=== PATIENT | male | born 1960 | race Caucasian/White ===

== ENCOUNTER 2024-05-31 12:01 | Outpatient (REF) | payer MEDICARE, SELFPAY | END 2024-05-31 12:02 | disposition home or self-care (01) | LOC: HO.HOSX 12:01 | PROVIDERS: Visit Provider Orthopaedic Surgery | DX: Z13.89 Encounter for screening for other disorder (principal) ==

== ENCOUNTER 2024-06-01 08:25 | Outpatient (REF) | payer MEDICARE, SELFPAY ==
--- NOTE | ~2024-06-01 | XR_ITS ---
EXAMINATION: XR SHOULDER 2 OR MORE VIEWS LEFT HISTORY: M25.511 - Pain in right shoulder COMPARISON: There are no prior studies available for comparison. FINDINGS: Two views of the left shoulder are submitted. Osseous mineralization is normal. There is no fracture or dislocation. The glenohumeral and acromioclavicular joint spaces are preserved. The soft tissues are unremarkable. XR/XR shoulder LT min 2V IMPRESSION: Unremarkable examination of the left shoulder. Electronically signed by: Jhoan Avalos MD 06/02/2024 08:06 AM EDT
== END 2024-06-01 08:26 | disposition home or self-care (01) ==
LOC: HO.HOSX 08:25
PROVIDERS: Visit Provider Orthopaedic Surgery
DX: M25.511 Pain in right shoulder (principal)
CPT/HCPCS: 73030

== ENCOUNTER 2024-06-01 09:31 | Outpatient (AMB) | payer BC, SELFPAY ==
--- NOTE | 2024-06-01 09:52 | MHC.OFFVIS ---
Vital Signs 06/01/24 10:03 Height 5 ft 7 in Weight 173 lb BMI 27.1 Intake Visit Reasons: Left shoulder pain and weakness Intake Note: Faheem is a 64 year old right hand dominant male who presents with complaints of progressively worsening left shoulder pain and weakness. The patient did undergo right shoulder surgery in 2019. He denies any pain or weakness in his right shoulder. Describes his left shoulder pain as sharp in nature. The patient's symptoms have gotten worse over the last 6 months. He has failed the last 3 months of conservative treatment which have included physical therapy exercises, Tylenol and ibuprofen. He reports weakness when lifting his left hand above shoulder height. He has had cortisone injections in the past which gave him only temporary relief. today as a new patient for evaluation of left shoulder pain that began about 3 months ago . Patient reports the pain is located on the - aspect of the shoulder, radiating to the left elbow. Patient shares pain worsens when-? Reports numbness and tingling radiating down the arm. Has tried Ibuprofen and Tylenol arthritis. Reports the left shoulder arthroscopy, [address] Camara. Allergies No Known Allergies Allergy (Verified 06/01/24 10:03) Medication List - Last Reconciled 06/01/24 by Suresh Camara MD atorvastatin 20 mg PO DAILY empagliflozin (Jardiance) 25 mg PO DAILY fenofibrate 54 mg PO DAILY lisinopril 20 mg PO DAILY metoprolol succinate ER 50 mg PO DAILY tirzepatide (Mounjaro) mg subcut Physical Exam Vital Signs: BMI result Body Mass Index 27.1 Const Other: Well-nourished well-developed very friendly male awake alert and oriented x3 in no acute distress Extrem Other: Bilateral upper extremity examination shows good capillary refill, no skin lesions noted, normal sensation light touch Left shoulder examination shows decreased range of motion when compared to his right shoulder, 4+ out of 5 strength with supraspinatus testing, positive impingement signs, tenderness over his acromioclavicular joint, no instability Results Reviewed Results Reviewed: X-rays of the patient's left shoulder taken today show severe acromioclavicular joint narrowing, a type 2 acromion, no acute bony abnormalities Assessment & Plan Assessment & Plan (1) Rotator cuff insufficiency of left shoulder: Code(s): M25.312 - Other instability, left shoulder Category: Medical Plan Mr. Pryor presents with progressively worsening left shoulder pain weakness due to impingement syndrome and possible rotator cuff tearing. Thus, I will send him for an MRI of his left shoulder for further evaluation. I will see him back once the MRI is completed to discuss the findings and treatment options. I did give him prescriptions for a Medrol Dosepak and meloxicam to help with his pain meantime. Feel free to call me at any time should questions regarding his orthopedic management arise. I spent 20 minutes in reviewing the patient's records and imaging studies, seeing the patient and documenting in the medical record. Orders: Orders XR shoulder LT min 2V Today M25.511 - Pain in right shoulder MR shoulder LT wo con Today M25.312 - Other instability, left shoulder Medications: New meloxicam 15 mg PO DAILY PRN 30 tabs 3RF pain methylprednisolone (Medrol (Gaetano)) PO PER PKG DIR 21 ea 0RF Coding Level of Care Code New Pt Level 3 (44222) Complex EM visit Add On G2211 Diagnoses Rotator cuff insufficiency of left shoulder M25.312
[2024-06-01 10:03] VITALS: BMI 27.1
== END 2024-06-01 10:33 | disposition home or self-care (01) ==
LOC: HO.HOS 09:32
PROVIDERS: Visit Provider Orthopaedic Surgery
DX: M25.312 Other instability, left shoulder (principal)
CPT/HCPCS: 99203

== ENCOUNTER → 2024-06-01 09:57 | Outpatient (BNV) | payer BC, SELFPAY | PROVIDERS: Visit Provider Radiology Diagnostic Radiology | DX: M25.512 Pain in left shoulder (principal) | CPT/HCPCS: 73030 ==

== ENCOUNTER → 2024-06-14 07:13 | Outpatient (BNV) | payer BC, SELFPAY | PROVIDERS: PCP Internal Medicine; Visit Provider Radiology Diagnostic Radiology | DX: M75.122 Complete rotator cuff tear or rupture of left shoulder, not specified as traumatic (principal); M19.012 Primary osteoarthritis, left shoulder | CPT/HCPCS: 73221 ==

== ENCOUNTER 2024-06-14 07:14 | Outpatient (REF) | payer BC, SELFPAY ==
--- NOTE | ~2024-06-14 | MR_ITS ---
EXAMINATION: MR SHOULDER, LEFT CLINICAL INFORMATION: Left shoulder pain, radiating down left arm, decreased range of motion x3-4 months. Other instability left shoulder. COMPARISON: None Correlation made with radiographs left shoulder 06/01/2024. TECHNIQUE: Multiplanar multisequence MR imaging of the left shoulder was done without IV contrast. Examination performed on a 1.5 Estrella Siemens unit utilizing standard sequences. FINDINGS: Rotator Cuff and Biceps Tendon: Supraspinatus: There is an approximate 50% undersurface tear of the anterior tendon within the critical zone, spanning 9 mm in sagittal diameter by 5 mm in AP diameter (series 8, image 12). There is mild increased intrasubstance signal within the tendon consistent with tendinopathy. There is no full-thickness tear or tendinous retraction. The muscle belly is normal. Infraspinatus: Intact without definite evidence of tear. Normal muscle belly. Subscapularis: There is an interstitial myotendinous tear of the bursal surface spanning approximately 16 mm sagittal diameter (series 8, image 24). There is a partial insertional tear of the tendon at the inferior insertional aspect measuring approximately 2 x 6 mm. (Series 8, image 8). Mildly increased intrasubstance signal within the distal tendon is consistent with mild tendinopathy. No full-thickness tear or tendinous retraction. The transverse humeral ligament is intact. Normal muscle belly. Teres Minor: Appears intact and normal in signal. Normal muscle belly. Biceps Long Head: Normally located within the groove. There is mildly increased fluid surrounding the tendon consistent with mild tenosynovitis. The tendon has normal morphology. The tendon in the rotator interval demonstrates grossly normal signal. The bicipital anchor is intact. AC Joint and Acromiohumeral Arch: There is moderate predominantly superior surface spurring of the AC joint with mild periarticular edema and joint capsular distention. There is minimal undersurface spurring. There is no supraspinatus outlet impingement. There is a type II acromion without significant undersurface spurs. Glenohumeral Joint and Labrum: There is minimally increased joint fluid present. There are no significant cartilaginous defects. There is no subchondral bone plate edema. The labrum demonstrates irregular signal throughout the superior labrum suggestive of tearing. This extends mildly into the anterior labrum, which appears diminutive. Remainder of the labrum appears intact. Osseous Structures: No additional gross bone marrow edema or abnormal infiltrating bone marrow signal. No definite fracture or contusive injury. Spino-glenoid Notch: Normal. Quadrilateral Space: Normal. Other: There is fluid signal within the subacromial/subdeltoid bursa suggestive of mild bursitis. MR/MR shoulder LT wo con IMPRESSION: 1. There is an approximate 50% undersurface tear of the anterior supraspinatus tendon within the critical zone. There is no full-thickness tear or tendinous retraction. There is mild associated tendinopathy. 2. There is an interstitial myotendinous tear of the bursal surface of the subscapularis tendon. In addition there is a partial insertional tear of the inferior insertional aspect of the tendon. There is mild associated tendinopathy. 3. The infraspinatus tendon and teres minor tendon are intact. 4. There are findings highly suggestive of degenerative type tearing of the anterosuperior labrum. 5. Mild to moderate arthritis in the AC joint with minimal undersurface spurring. No supraspinatus outlet stenosis. 6. Mild subacromial/subdeltoid bursitis. Electronically signed by: José Frank MD 06/14/2024 03:41 PM EDT
== END 2024-06-14 07:15 | disposition home or self-care (01) ==
LOC: HO.MRI 07:14
PROVIDERS: PCP Internal Medicine; Visit Provider Orthopaedic Surgery
DX: M25.312 Other instability, left shoulder (principal); M75.102 Unspecified rotator cuff tear or rupture of left shoulder, not specified as traumatic; M19.012 Primary osteoarthritis, left shoulder; M75.52 Bursitis of left shoulder
CPT/HCPCS: 73221

== ENCOUNTER 2024-06-21 10:35 | Outpatient (AMB) | payer BC, SELFPAY ==
--- NOTE | 2024-06-21 10:36 | MHC.OFFVIS ---
Vital Signs 06/21/24 10:39 Height 5 ft 7 in Weight 173 lb BMI 27.1 Intake Visit Reasons: Left shoulder pain Intake Note: Faheem is a 64 year old male who presents with progressively worsening left shoulder pain. He describes his pain as sharp in nature. He reports mild weakness in his left shoulder when lifting his hand above shoulder height. He has tried Tylenol and anti-inflammatory medicines which gave him mild relief. Allergies No Known Allergies Allergy (Verified 06/21/24 10:37) Medication List - Last Reconciled 06/22/24 by Suresh Camara MD atorvastatin 20 mg PO DAILY empagliflozin (Jardiance) 25 mg PO DAILY fenofibrate 54 mg PO DAILY lisinopril 20 mg PO DAILY meloxicam 15 mg PO DAILY PRN methylprednisolone (Medrol (Gaetano)) PO PER PKG DIR metoprolol succinate ER 50 mg PO DAILY tirzepatide (Mounjaro) mg subcut Physical Exam Vital Signs: BMI result Body Mass Index 27.1 Const Other: Well-nourished well-developed very friendly male awake alert and oriented x3 in no acute distress Extrem Other: Bilateral upper extremity examination shows good capillary refill, no skin lesions noted, normal sensation light touch Left shoulder examination shows almost full range of motion when compared to his right shoulder, positive impingement signs, 4+ out of 5 strength with supraspinatus testing, tenderness over his acromioclavicular joint, no instability Office Procedures AMB Joint Injection/Aspiration Joint Injection/Aspiration Primary Site: left shoulder Prep: site was prepped using aseptic technique Injected: 40 mg of, DepoMedrol and 1% plain lidocaine Procedure: The patient tolerated the procedure well Coding 91943 - Large joint Procedure code (CPT) selection complete Results Reviewed Results Reviewed: MRI of the patient's left shoulder show severe acromioclavicular joint narrowing, a type 2 acromion, signal change within the supraspinatus tendon due to rotator cuff tendinosis versus a small tear Assessment & Plan Assessment & Plan (1) Impingement syndrome of left shoulder: Code(s): M75.42 - Impingement syndrome of left shoulder Category: Medical (2) Left shoulder pain: Code(s): M25.512 - Pain in left shoulder Plan Mr. Pryor presents with left shoulder pain due to impingement syndrome, acromioclavicular joint arthritis and rotator cuff tendinosis versus a small tear. I had a lengthy discussion with the patient regarding the treatment options. The risks and benefits of a left shoulder cortisone injection were discussed at length with the patient. The patient wished to proceed. He tolerated the injection well. He will continue with his home exercise program. If he fails continued non operative treatments he is considering undergoing left shoulder surgery later this year. He will contact me prior to his follow-up appointment in 3 months should any questions or concerns arise. Feel free to call me at any time should questions regarding his orthopedic management arise. I spent 21 minutes in reviewing the patient's records and imaging studies, seeing the patient and documenting in the medical record. Orders: Orders AMB Joint Injection/Aspiration 06/21/24 M25.312 - Other instability, left shoulder, M75.42 - Impingement syndrome of left shoulder Coding Level of Care Code Est Pt Level 3 (77971) Complex EM visit Add On G2211 Diagnoses Impingement syndrome of left shoulder M75.42 Left shoulder pain M25.512 CPT Codes Coding - 12909 Large joint: 57701 - Large joint ([id number])
[2024-06-21 10:39] VITALS: BMI 27.1
== END 2024-06-21 11:04 | disposition home or self-care (01) ==
LOC: HO.HOS 10:35
PROVIDERS: PCP Internal Medicine; Visit Provider Orthopaedic Surgery
DX: M75.42 Impingement syndrome of left shoulder (principal); M25.512 Pain in left shoulder
CPT/HCPCS: 20610; 99213

== ENCOUNTER → 2024-06-21 10:35 | Outpatient (BNVA) | payer BC, SELFPAY | PROVIDERS: PCP Internal Medicine; Visit Provider Orthopaedic Surgery | DX: M75.42 Impingement syndrome of left shoulder (principal); M25.512 Pain in left shoulder | CPT/HCPCS: 20610; J1010; J2003 ==

== ENCOUNTER 2024-09-26 10:21 | Outpatient (AMB) | payer BC, SELFPAY ==
[2024-09-26 10:23] VITALS: BMI 27.1
--- NOTE | 2024-09-26 10:23 | MHC.OFFVIS ---
Vital Signs 09/26/24 10:23 Height 5 ft 7 in Weight 173 lb BMI 27.1 Intake Visit Reasons: Left shoulder pain Intake Note: Faheem is a 64 year old male who presents with left shoulder pain. He describes his pain as achy in nature. He denies any weakness in his shoulder. He has had cortisone injections in the past which gave him fairly good relief. He wishes to hold off on surgery for as long as possible. He has taken meloxicam which gives him fairly good relief. Allergies No Known Allergies Allergy (Verified 09/26/24 10:23) Medication List - Last Reconciled 09/26/24 by Suresh Camara MD atorvastatin 20 mg PO DAILY empagliflozin (Jardiance) 25 mg PO DAILY fenofibrate 54 mg PO DAILY lisinopril 20 mg PO DAILY meloxicam 15 mg PO DAILY PRN methylprednisolone (Medrol (Gaetano)) PO PER PKG DIR metoprolol succinate ER 50 mg PO DAILY tirzepatide (Mounjaro) mg subcut Physical Exam Vital Signs: BMI result Body Mass Index 27.1 Const Other: Well-nourished well-developed very friendly male awake alert and oriented x3 in no acute distress Extrem Other: Left shoulder examination shows full range of motion when compared to his right shoulder, 4+ out of 5 strength with supraspinatus testing, positive impingement signs, no instability Office Procedures AMB Joint Injection/Aspiration Joint Injection/Aspiration Primary Site: left shoulder Prep: site was prepped using aseptic technique Injected: 40 mg of, DepoMedrol and 1% plain lidocaine Procedure: The patient tolerated the procedure well Coding 37764 - Large joint Procedure code (CPT) selection complete Assessment & Plan Assessment & Plan (1) Left shoulder pain: Code(s): M25.512 - Pain in left shoulder (2) Impingement syndrome of left shoulder: Code(s): M75.42 - Impingement syndrome of left shoulder Category: Medical Plan Mr. Pryor presents with left shoulder pain due to impingement syndrome, acromioclavicular joint arthritis and rotator cuff tendinosis versus a small tear. The risks and benefits of a left shoulder cortisone injection were discussed at length with the patient. The patient wished to proceed. He tolerated the injection well. He will continue with his home stretching program. The do's and don'ts of lifting were discussed at length with the patient. I did refill his prescription for meloxicam. I also gave him a prescription for a Medrol Dosepak. He will contact me prior to his follow-up appointment in 3 months should any questions or concerns arise. Feel free to call me at any time should questions regarding his orthopedic management arise. I spent 20 minutes in reviewing the patient's records and imaging studies, seeing the patient and documenting in the medical record. Orders: Orders AMB Joint Injection/Aspiration Today M75.42 - Impingement syndrome of left shoulder Medications: New methylprednisolone (Medrol (Gaetano)) PO PER PKG DIR 21 ea 0RF Refilled meloxicam 15 mg PO DAILY PRN 30 tabs 3RF pain Coding Level of Care Code Est Pt Level 3 (14584) Complex EM visit Add On G2211 Diagnoses Left shoulder pain M25.512 Impingement syndrome of left shoulder M75.42 CPT Codes Coding - 57475 Large joint: 88162 - Large joint ([id number])
--- OUTSIDE RECORDS SUMMARY | 2024-09-26 11:31 | XMS_ITS | Patient Health Record ---
Author Organization [facility] Address [facility] [address] [id number] Care Team Providers Care Centrex Radio Operator Name Role Phone DAMARIS SANFORD Unavailable [phone] Reason For Referral No Information Plan Of Treatment No Information Insurance Providers Payer Name Payer Address Payer Phone Subscriber Number Group Number Insured Name Patient Relationship to Insured Coverage Start Date Coverage End Date [place] R[place] BCBS - [employer] [address] [place] [address] [id number] MARIYA ROMEO Self - patient is the insured
--- OUTSIDE RECORDS SUMMARY | 2024-09-26 11:31 | XMS_ITS | Clinical Summary ---
Author Organization [facility] Address [address] [place] [address] Care Team Providers Care Supervisor Dyer Name Role Phone Theresa Garza MD Primary Care Provider Allergies No known active allergies Medications Medication Sig Dispensed Refills Start Date End Date Status atorvastatin (LIPITOR) tablet 20 mg Take 20 mg by mouth daily. 4 03/14/2018 Active BD ULTRA-FINE PEN NEEDLES 29G X 12.7MM MISC USE WITH TOUAmara Health AnalyticsO PEN FOR INJECTING INSULIN 11 03/26/2018 Active lisinopril (PRINIVIL,ZESTRIL ) tablet 40 mg Take 40 mg by mouth daily. 1 03/26/2018 Active metoprolol succinate (TOPROL-XL) 24 hr tablet 50 mg Take 50 mg by mouth daily. 3 02/14/2018 Active Dulaglutide (TRULICITY) 1.5 MG/0.5ML SOPN Inject under the skin. 0 Active aspirin EC 81 MG tablet Take 81 mg by mouth daily. 0 Active amLODIPine (NORVASC) tablet 10 mg Take 10 mg by mouth daily. 0 10/31/2018 Active FARXIGA 10 MG TABS Take 1 tablet by mouth daily. 1 12/25/2018 Active TRESIBA FLEXTOUCH 200 UNIT/ML SOPN INJECT 25 UNITS SUBCUTANEOUSLY ONCE A DAY 1 11/08/2018 Active HYDROcodone-aceta minophen (NORCO) 5-325 MG per tablet May take 1-2 tabs p.o. every 6 hours as needed for pain. May fill for lesser quantity. 40 tablet 0 01/27/2019 Active traMADol (ULTRAM) 50 MG tablet Take 1 tab every 12 hours as needed for pain 60 tablet 2 03/14/2019 Active Active Problems Problem Noted Date Diagnosed Date Shoulder impingement, right 06/28/2018 Chronic right shoulder pain 06/28/2018 Cervical radiculopathy, chronic 04/20/2018 Family History Medical History Relation Name Comments Heart disease Brother Heart disease Father Cancer Mother Diabetes Mother Relation Name Status Comments Brother Father Mother Social History Tobacco Use Types Packs/Day Years Used Date Smoking Tobacco: Never Smokeless Tobacco: Never Alcohol Use Standard Drinks/Week Comments Yes 0 (1 standard drink = 0.6 oz pur e alcohol) Sex and Gender Information Value Date Recorded Sex Assigned at Not on file Gender Identity Not on file Sexual Orientation Not on file Job Start Date Occupation Industry Not on file Not on file Not on file Last Filed Vital Signs Vital Sign Reading Time Taken Comments Blood Pressure - - Pulse - - Temperature - - Respiratory Rate - - Oxygen Saturation - - Inhaled Oxygen Concentration - - Weight 93 kg (205 lb) 04/20/2018 8:31 AM EST Height 170.2 cm (5' 7 ) 04/20/2018 8:31 AM EST Body Mass Index 32.11 04/20/2018 8:31 AM EST Plan of Treatment Health Maintenance Due Date Last Done Comments Hepatitis C Screening 1960 COVID-19 Vaccine (#1) 1960 Pneumococcal Vaccine (1 of 2 - PCV) 1964 Depression Screening 1970 BMI Counseling 1976 Preventative Health Evaluation 1976 DTap / Tdap / Td (1 - Tdap) 1977 Colon Cancer Screening (Colonoscopy) 2003 Shingrix-Zoster Vaccine (1 of 2) 2008 Fall Risk Assessment 2023 Influenza Vaccine (#1) 2024 RSV Adult > 60+ Yrs or Pregn ant (1 - 1-dose 75+ series) 2033 Hepatitis B Vaccines Aged Out No long er eligible based on patient's age to complete this topic RSV Ped < 20 months Aged Out No longe r eligible based on patient's age to complete this topic Care Teams Supervisor Dyer Relationship Specialty Start Date End Date Theresa Garza MD [address] [place], [place] [address] [place] [id number] PCP - General 04/04/18
== END 2024-09-26 10:59 | disposition home or self-care (01) ==
LOC: HO.HOS 10:21
PROVIDERS: PCP Internal Medicine; Visit Provider Orthopaedic Surgery
DX: M25.512 Pain in left shoulder (principal); M75.42 Impingement syndrome of left shoulder
CPT/HCPCS: 20610; 99214

== ENCOUNTER → 2024-09-26 10:21 | Outpatient (BNVA) | payer BC, SELFPAY | PROVIDERS: PCP Internal Medicine; Visit Provider Orthopaedic Surgery | DX: M25.512 Pain in left shoulder (principal); M75.42 Impingement syndrome of left shoulder | CPT/HCPCS: 20610; J1010; J2003 ==

== ENCOUNTER 2024-12-26 09:53 | Outpatient (AMB) | payer BC, SELFPAY ==
--- NOTE | 2024-12-26 09:57 | MHC.OFFVIS ---
Vital Signs 12/26/24 10:01 Height 5 ft 7 in Weight 168 lb BMI 26.3 Intake Visit Reasons: INJ-Left shoulder INJ, last inj 09/26/24 Intake Note: Faheem is a 64 year old male who presents with complaints of left shoulder pain. He denies any weakness. He states that he has had cortisone injections in the past which gave him fairly good relief. He did undergo right shoulder surgery several years ago. He denies any pain in his right shoulder. Wishes to hold off on left shoulder surgery for now. Allergies No Known Allergies Allergy (Verified 12/26/24 10:01) Medication List - Last Reconciled 12/26/24 by Suresh Camara MD atorvastatin 20 mg PO DAILY empagliflozin (Jardiance) 25 mg PO DAILY fenofibrate 54 mg PO DAILY lisinopril 20 mg PO DAILY meloxicam 15 mg PO DAILY PRN methylprednisolone (Medrol (Gaetano)) PO PER PKG DIR methylprednisolone (Medrol (Gaetano)) PO PER PKG DIR metoprolol succinate ER 50 mg PO DAILY tirzepatide (Mounjaro) mg subcut Physical Exam Vital Signs: BMI result Body Mass Index 26.3 Const Other: Well-nourished well-developed very friendly male awake alert and oriented x3 in no acute distress Extrem Other: Left shoulder examination shows full range of motion when compared to his right shoulder, 4/5 strength with supraspinatus testing, positive impingement signs, no instability Office Procedures AMB Joint Injection/Aspiration Joint Injection/Aspiration Primary Site: left shoulder Prep: site was prepped using aseptic technique Injected: 40 mg of, DepoMedrol and 1% plain lidocaine Procedure: The patient tolerated the procedure well Coding 19465 - Large joint Procedure code (CPT) selection complete Assessment & Plan Assessment & Plan (1) Impingement syndrome of left shoulder: Code(s): M75.42 - Impingement syndrome of left shoulder Category: Medical Plan Mr. Pryor presents with left shoulder pain due to impingement syndrome, acromioclavicular joint arthritis and possible rotator cuff tearing. I had a lengthy discussion with the patient regarding the treatment options. He wishes to hold off on surgery for now. I agree with this plan. The risks and benefits of a left shoulder cortisone injection were discussed at length with the patient. The patient wished to proceed. He tolerated the injection well. Will continue with his activity modifications. He will contact me prior to his follow-up appointment in 3 months should any questions or concerns arise. Feel free to call me at any time should questions regarding his orthopedic management arise. I spent 20 minutes in reviewing the patient's records and imaging studies, seeing the patient and documenting in the medical record. Orders: Orders AMB Joint Injection/Aspiration Today M75.42 - Impingement syndrome of left shoulder Coding Level of Care Code Est Pt Level 3 (32310) Complex EM visit Add On G2211 Diagnoses Impingement syndrome of left shoulder M75.42 CPT Codes Coding - 94168 Large joint: 00826 - Large joint ([id number])
[2024-12-26 10:01] VITALS: BMI 26.3
--- OUTSIDE RECORDS SUMMARY | 2024-12-26 11:14 | XMS_ITS | Clinical Summary ---
Author Organization [facility] Address [address] [place] [address] Care Team Providers Care Panel Wirer Name Role Phone Theresa Garza MD Primary Care Provider Allergies No known active allergies Medications Medication Sig Dispensed Refills Start Date End Date Status atorvastatin (LIPITOR) tablet 20 mg Take 20 mg by mouth daily. 4 03/14/2018 Active BD ULTRA-FINE PEN NEEDLES 29G X 12.7MM MISC USE WITH TOUSynacorO PEN FOR INJECTING INSULIN 11 03/26/2018 Active [...] age to complete this topic Care Teams Panel Wirer Relationship Specialty Start Date End Date Theresa Garza MD [address] [place], [place] [id number] [place] [phone] PCP - General 04/04/18
--- OUTSIDE RECORDS SUMMARY | 2024-12-26 11:14 | XMS_ITS | Patient Health Record ---
Author Organization [facility] Address [facility] [phone] Care Team Providers Care Manager Physical Name Role Phone DAMARIS SANFORD Unavailable [phone] Reason For Referral No Information Plan Of Treatment No Information Insurance Providers Payer Name Payer Address Payer Phone Subscriber Number Group Number Insured Name Patient Relationship to Insured Coverage Start Date Coverage End Date [place] R[place] BCBS - [employer] [address] [place] [address] [id number] MARIYA ROMEO Self - patient is the insured
== END 2024-12-26 10:33 | disposition home or self-care (01) ==
LOC: HO.HOS 09:54
PROVIDERS: PCP Internal Medicine; Visit Provider Orthopaedic Surgery
DX: M75.42 Impingement syndrome of left shoulder (principal)
CPT/HCPCS: 20610

== ENCOUNTER → 2024-12-26 09:53 | Outpatient (BNVA) | payer BC, SELFPAY | PROVIDERS: PCP Internal Medicine; Visit Provider Orthopaedic Surgery | DX: M75.42 Impingement syndrome of left shoulder (principal) | CPT/HCPCS: 20610; J1010; J2003 ==